=== PATIENT | male | born 1970 | race Hispanic/Latino ===

== ENCOUNTER 2024-09-19 11:59 | Emergency (ER) | payer MEDICAID ==
[2024-09-19] MEDS ORDERED: Acetaminophen 500 MG TAB ONE (13:29)
[2024-09-19] MEDS ORDERED: Ibuprofen 800 MG TAB ONE (13:29)
== END 2024-09-19 14:55 | disposition home or self-care (01) ==
LOC: CSHERS 11:59
DX: J32.9 Chronic sinusitis, unspecified (principal); R56.9 Unspecified convulsions; R11.2 Nausea with vomiting, unspecified; Z55.6 Problems related to health literacy
CPT/HCPCS: 70450; 71045